=== PATIENT | male | born 1970 | race Caucasian/White ===

== ENCOUNTER 2024-09-13 06:15 | Day surgery (SDC) | payer OTHER, SELFPAY | END 2024-09-13 15:47 | disposition home or self-care (01) | LOC: GI 06:15 | PROVIDERS: ATTENDING PHYSICIAN Specialist | DX: K57.30 Diverticulosis of large intestine without perforation or abscess without bleeding (principal); K63.89 Other specified diseases of intestine; K62.89 Other specified diseases of anus and rectum; K50.80 Crohn's disease of both small and large intestine without complications; K62.1 Rectal polyp; Z98.0 Intestinal bypass and anastomosis status | CPT/HCPCS: 45380; 88305 ==